=== PATIENT | male | born 1955 | race Caucasian/White ===

== ENCOUNTER 2017-04-03 19:24 | Emergency (ER) | payer OTHER ==
[2017-04-03] MEDS ORDERED: Lidocaine 1% 20 ML MDV INJECT ONE (19:39)
[2017-04-03] MEDS ORDERED: Diphtheria,Pertussis(Acell),Tetanus Vaccine 0.5 ML Syringe IM ONE (19:39)
[2017-04-03] MEDS ORDERED: Bacitracin Oint 1 GM U/D Packet TOP ONE (20:42)
--- NOTE | 2017-04-03 21:02 | EDM.PDOC ---
ED HPI GENERAL MEDICAL PROBLEM - General Chief Complaint: Laceration Stated Complaint: LACERATION RT LEG Time Seen by Provider: 04/03/17 19:38 Source of Information: Reports: Patient History Limitations: Reports: No Limitations - History of Present Illness INITIAL COMMENTS - FREE TEXT/NARRATIVE: HISTORY AND PHYSICAL: [] 61-year-old male presents to the emergency room with a laceration to the right upper leg History of Present Illness: [Patient was using a circular saw and had the guard removed. Today he was in a hurry and hit his leg the saw. No loss of consciousness when he does been under control with pressure] Review of Systems: As per history of present illness and below otherwise all systems reviewed and negative. Past medical history: As per history of present illness and as reviewed below otherwise noncontributory. Surgical history: As per history of present illness and as reviewed below otherwise noncontributory. Social history: No reported history of drug or alcohol abuse. Family history: As per history of present illness and as reviewed below otherwise noncontributory. Physical exam: Alert and oriented gentleman nontoxic in appearance, during questions appropriately last tetanus vaccine was greater than 5 years ago. HEENT: Atraumatic, normocehpalic, pupils reactive, negative for conjunctival pallor or scleral icterus, mucous membranes moist, throat clear, neck supple, nontender, trachea midline. Lungs: Clear to auscultation, breath sounds equal bilaterally, chest non tender. Heart: S1S2, regular, negative for clicks, rubs, or JVD. Abdomen: Soft, nondistended, nontender. Negative for masses or hepatossplenmegaly. Negative for costovertebral tenderness. Pelvis: Stable nontender. Genitourinary: Deferred. Rectal: Deferred Extremities: Circular saw laceration to the right femur, negative for cords or calf pain. Neurovascular unremarkable. Neuro: Awake, alert, oriented. Cranial nerves II through XII unremarkable. Cerebellum unremarkable. Motor and sensory unremarkable throughout. Exam nonfocal. Diagnostics: [X-ray of femur unremarkable for fracture or dislocation] Therapeutics: [Sutures] Impression: []Laceration repair Plan: []Discharged home Would recommend that this be elevated ice keep pressure bandage on for the next 24 hours Any worsening of symptoms please return immediately for reevaluation Definitive disposition and diagnosis as appropriate pending reevaluation and review of above. Onset: Today, Sudden Duration: Minutes: Location: Reports: Lower Extremity, Right right knee Pain Score (Numeric/FACES): 5 - Related Data Allergies Allergy/AdvReac Type Severity Reaction Status Date / Time No Known Allergies Allergy Verified 04/03/17 19:37 Home Meds: Home Meds Amoxicillin/Potassium Clav [Augmentin 875-125 Tablet] 1 each PO Q12HR #14 tablet 04/03/17 [Rx] Past Medical History HEENT History: Reports: None Cardiovascular History: Reports: None Respiratory History: Reports: None Gastrointestinal History: Reports: None Genitourinary History: Reports: None Musculoskeletal History: Reports: None Neurological History: Reports: None Psychiatric History: Reports: None Endocrine/Metabolic History: Reports: None Hematologic History: Reports: None Immunologic History: Reports: None Oncologic (Cancer) History: Reports: None Dermatologic History: Reports: None - Infectious Disease History Infectious Disease History: Reports: None - Past Surgical History Head Surgeries/Procedures: Reports: None Social & Family History - Family History Family Medical History: Noncontributory - Tobacco Use Smoking Status *Q: Never Smoker - Caffeine Use Caffeine Use: Reports: Coffee - Recreational Drug Use Recreational Drug Use: No ED ROS GENERAL - Review of Systems Review Of Systems: ROS reveals no pertinent complaints other than HPI. ED EXAM, SKIN/RASH Exam: See Below (See dictation) ED SKIN PROCEDURES - Laceration/Wound Repair Right Anterior Midline Leg Lac/Wound length In cm: 5 Appearance: Muscle, Linear, Irregular, Mildly Contaminated Distal NVT: Neuro & Vascular Intact, No Tendon Injury Anesthetic Type: Local Local Anesthesia - Lidocaine (Xylocaine): 1% Plain Local Anesthetic Volume: Other (15) Skin Prep: Chlorhexidine (Hibiciens), Saline Exploration/Debridement/Repair: Wound Explored, In a Bloodless Field, Explored to Base, Minimal Debridement Closed with: Sutures Suture Size: 4-0 # of Sutures: 7 Suture Type: Nylon, Interrupted, Simple Suture Size: 4-0 # of Sutures: 3 Repaired with: Chromic Drain Placement: No Sterile Dressing Applied: Nurse Tetanus Status Addressed: Yes Complications: No Course - Vital Signs Last Recorded V/S: Last Vital Signs Temp 36.3 C 04/03/17 19:37 Pulse 67 04/03/17 19:37 Resp 18 04/03/17 19:37 BP Pulse Ox 98 04/03/17 19:37 - Orders/Labs/Meds Orders: Active Orders 24 hr Category Date Time Status Vaccines to be Administered [RC] PER UNIT ROUTINE Care 04/03/17 19:39 Active Femur Min 2V Rt [CR] Stat Exams 04/03/17 19:43 Ordered Meds: Medications Discontinued Medications Generic Name Dose Route Start Last Admin Trade Name Jorge PRN Reason Stop Dose Admin Bacitracin 1 dose 04/03/17 20:42 04/03/17 20:46 Bacitracin Oint 1 Gm TOP 04/03/17 20:43 1 dose ONETIME ONE Administration Diphtheria/Tetanus/Acell Pertussis 0.5 ml 04/03/17 19:39 04/03/17 20:09 Adacel IM 04/03/17 19:40 0.5 ml .ONCE ONE Administration Lidocaine HCl 20 ml 04/03/17 19:39 04/03/17 20:10 Xylocaine 1% INJECT 04/03/17 19:40 20 ml ONETIME ONE Administration Departure - Departure Time of Disposition: 21:04 Disposition: Home, Self-Care 01 Condition: Good Clinical Impression: Laceration - Discharge Information Prescriptions: Amoxicillin/Potassium Clav [Augmentin 875-125 Tablet] 1 each PO Q12HR #14 tablet Referrals: PCP,None [Primary Care Provider] - Additional Instructions: The following information is given to patients seen in the emergency department who are being discharged to home. This information is to outline your options for follow-up care. We provide all patients seen in our emergency department with a follow-up referral. The need for follow-up, as well as the timing and circumstances, are variable depending upon the specifics of your emergency department visit. If you don't have a primary care physician on staff, we will provide you with a referral. We always advise you to contact your personal physician following an emergency department visit to inform them of the circumstance of the visit and for follow-up with them and/or the need for any referrals to a consulting specialist. The emergency department will also refer you to a specialist when appropriate. This referral assures that you have the opportunity for followup care with a specialist. All of these measure are taken in an effort to provide you with optimal care, which includes your followup. Under all circumstances we always encourage you to contact your private physician who remains a resource for coordinating your care. When calling for followup care, please make the office aware that this follow-up is from your recent emergency room visit. If for any reason you are refused follow-up, please contact the [facility] emergency department at and asked to speak to the emergency department charge nurse. If any signs of infection redness heat swelling pustular material occurs return immediately for reevaluation Sutures to be removed in 10 days Antibiotic therapy Augmentin 875 twice daily for 7 days/prescription has been electronically sent to [facility] Try to stay off of your leg for the next 2 days You may take the compression bandage off after 24 hours - My Orders Last 24 Hours: My Active Orders 04/03/17 19:39 Vaccines to be Administered [RC] PER UNIT ROUTINE 04/03/17 19:43 Femur Min 2V Rt [CR] Stat - Assessment/Plan Last 24 Hours: My Active Orders 04/03/17 19:39 Vaccines to be Administered [RC] PER UNIT ROUTINE 04/03/17 19:43 Femur Min 2V Rt [CR] Stat
[2017-04-03 21:44] VITALS: BP 111/77
--- NOTE | 2017-04-04 11:18 | CR ---
EXAM DATE: 04/03/17 PATIENT'S AGE: 61 Patient: LONNIE GONZALEZ Facility: [place], [place] : 1955 Study: XRay Extremity Right FEMUR [id number]/28/2017 8:05:25 PM Ordering Physician: Doctor Prajapati Final Report: Amended report for typographic error, impression point #2. HISTORY: Cut to length with circular saw. Laceration on top of leg near the knee. FINDINGS: Four views of the right femur demonstrates normal alignment at the hip and knee. There is irregularity of the soft tissue anterior and lateral to the distal femoral diaphysis. There is a 7 mm chronic focus of increased density and T2 distal femur on the lateral view only. The AP image demonstrates a tiny 9 mm linear calcific density lateral to the lateral femoral condyle. No donor site is seen. No cortical break is identified. No metallic foreign body. IMPRESSION: 1. Heterogeneous appearance of the soft tissues anterior and lateral to the distal femur compatible with laceration. 2. NO CORTICAL BREAK OR FRACTURE SEEN. 3. There is a small linear calcific density seen lateral to the lateral femoral condyle. While this could represent a tiny fracture fragment no donor site is seen. It could represent a tiny foreign body but does not apparent on the lateral view. Similarly, a 7 mm rounded density is seen anterior to the distal femur on the lateral view. No definite foreign body is seen on the AP image. Dictated by Bing Romero MD @ 04/03/2017 8:49:36 PM Prelim Report By Dr. Bing Romero @ 04/03/2017 8:50:30 PM Dictated by: Bing Romero MD @ 04/03/2017 21:05:19 Signed by: Bing Romero MD @ 04/03/2017 9:05:19 PM (Electronic Signature) Report Signed by Proxy. [facility]
== END 2017-04-03 21:31 | disposition home or self-care (01) ==
LOC: MW.ED 19:24
DX: S71.111A Laceration without foreign body, right thigh, initial encounter (principal); Z23 Encounter for immunization; W31.2XXA Contact with powered woodworking and forming machines, initial encounter
CPT/HCPCS: 12002; 73552-26-LT; 73552-RT; 90471; 90715; 99283; 99283-25